=== PATIENT | female | born 1970 | race Caucasian/White ===

== ENCOUNTER 2017-07-11 07:50 | Outpatient (CLI) | payer BC ==
--- NOTE | 2017-07-11 09:07 | MRI ---
BRAIN MRI WITH AND WITHOUT CONTRAST: Clinical history: Speech complaint, forgetfulness. Vision changes and headache with gait imbalance. FINDINGS: Ventricular system is normal in size. There is no evidence of acute territorial infarction, intracra nial mass effect or midline shift. No intracranial hemorrhagic susceptibility or evidence of a patho logic enhancing intraaxial mass. 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 Scattered retention cyst formation of the paranasal sinuses. Imaged central skull b ase flow voids are patent. IMPRESSION: No acute intracranial abnormalities. POS: CHARANJIT
[2017-07-11] MEDS ORDERED: Gadobenate Dimeglumine 529 MG/1 ML (20ML VIAL) ONE (16:32)
== END 2017-07-11 07:51 | disposition home or self-care (01) ==
LOC: MRI 07:50
PROVIDERS: ATTEND Student in an Organized Health Care Education/Training Program
DX: R51 Headache (principal); R47.9 Unspecified speech disturbances; R68.89 Other general symptoms and signs; H53.9 Unspecified visual disturbance; R26.89 Other abnormalities of gait and mobility
CPT/HCPCS: 70553; 95816; A9579